=== PATIENT | female | born 1965 | race Asian ===

== ENCOUNTER 2017-07-03 07:22 | Day surgery (SDC) | payer BC ==
[2017-07-03] MEDS ORDERED: FENTAnyl 50 MCG/ML VIAL (10:04)
[2017-07-03] MEDS ORDERED: MIDAZOLAM 1 MG/ML 2 ML INJ ×2 (10:04)
== END 2017-07-03 14:45 | disposition home or self-care (01) ==
LOC: GIL 07:22
DX: Z12.11 Encounter for screening for malignant neoplasm of colon (principal); K29.71 Gastritis, unspecified, with bleeding; K64.8 Other hemorrhoids
CPT/HCPCS: 43239; 84703; 87081